=== PATIENT | female | born 1975 | race Caucasian/White ===

== ENCOUNTER 2020-07-11 12:06 | Inpatient (IN) ==
[2020-07-11] MEDS ORDERED: PANTOPRAZOLE 40 MG VIAL IV STA (12:23)
[2020-07-11 12:41] LABS: Basophils % 0.4 % (0.0-0.8); Eosinophils # 0.1 10*3/uL (0.0-0.87); Hematocrit 26.5 VOL% (35.7-47.0); Hemoglobin 8.2 GM/DL (12.0-16.0); Immature Granulocytes % 0.3 %; Immature Granulocytes Absolute 0.02 #; Lymphocytes # 1.2 10*3/uL (1.4-4.0); Lymphocytes % 15.5 % (21.3-54.2); Mean Corpuscular HGB Conc 30.9 GM/DL (32-36); Mean Platelet Volume 10.5 FL (9.6-12.0); Monocytes % 3.9 % (1.7-12.7); Neutrophils % 78.9 % (38.7-73.9); Platelet Count 285 T/CUMM (130-400); Red Blood Count 3.01 MC/CUMM (3.8-5.5); Red Cell Distribution Width 13.3 % (9.3-17.3); White Blood Count 7.7 T/CUMM (4-12)
[2020-07-11 13:02] LABS: Alanine Aminotransferase 18 U/L (13-56); Albumin 3.3 G/DL (3.4-5.0); Alkaline Phosphatase 52 U/L (45-117); Aspartate Amino Transferase 15 U/L (0-37); Bilirubin,Total < 0.39 MG/DL (0.2-1.0); Blood Urea Nitrogen 16 MG/DL (7-18); Calcium 8.9 MG/DL (8.5-10.1); Estimated Glom Filtration Rate 77 ML/MIN; Glucose 110 MG/DL (74-106); Total Protein 7.2 G/DL (6.4-8.3)
[2020-07-11] MEDS ORDERED: SODIUM CHLORIDE 0.9% 1,000 ML IV SCH (14:30)
[2020-07-11] MEDS ORDERED: ONDANSETRON 4 MG/2 ML VIAL IV PRN (14:32)
[2020-07-11] MEDS ORDERED: ACETAMINOPHEN 325 MG TABLET PO PRN (14:32)
[2020-07-11] MEDS ORDERED: hydrALAZINE 20 MG/1 ML VIAL IV PRN (14:32)
[2020-07-11] MEDS ORDERED: DEXTROSE 50% 25 GM/50 ML VIAL IV PRN (14:32)
[2020-07-11] MEDS ORDERED: GLUCAGON 1 MG VIAL IM PRN (14:32)
[2020-07-11 15:07] LABS: Thyroid Stimulating Hormone 0.237 uIU/ml (0.358-3.74)
[2020-07-11] MEDS ORDERED: SIMETHICONE CHEW 125 MG TABLET PO PRN (16:00)
[2020-07-11 16:52] LABS: Hematocrit 25.7 VOL% (35.7-47.0); Hemoglobin 7.9 GM/DL (12.0-16.0)
[2020-07-11] MEDS: LACTATED RINGERS 1,000 ML IV SCH (17:29)
[2020-07-11 20:32] LABS: Hematocrit 24.4 VOL% (35.7-47.0); Hemoglobin 7.8 GM/DL (12.0-16.0)
[2020-07-11] MEDS: DICYCLOMINE 10 MG CAPSULE PO SCH (21:21)
[2020-07-11] MEDS: PROPRANOLOL 10 MG TABLET PO SCH (21:21)
[2020-07-11] MEDS: BENZTROPINE 1 MG TABLET PO SCH (21:21)
[2020-07-11] MEDS: GABAPENTIN 400 MG CAPSULE PO SCH (21:22)
[2020-07-11] MEDS: traZODone 50 MG TABLET PO SCH (21:22)
[2020-07-11] MEDS: PANTOPRAZOLE 40 MG VIAL IV SCH (21:22)
[2020-07-12] MEDS: LACTATED RINGERS 1,000 ML IV SCH ×5 (01:49→19:15)
[2020-07-12 02:35] LABS: Basophils % 0.3 % (0.0-0.8); Eosinophils # 0.1 10*3/uL (0.0-0.87); Eosinophils % 1.8 % (0.00-10.9); Hematocrit 22.7 VOL% (35.7-47.0); Immature Granulocytes % 0.3 %; Immature Granulocytes Absolute 0.02 #; Lymphocytes # 2.2 10*3/uL (1.4-4.0); Lymphocytes % 36.4 % (21.3-54.2); Mean Corpuscular HGB Conc 30.8 GM/DL (32-36); Mean Platelet Volume 9.9 FL (9.6-12.0); Monocytes % 6.2 % (1.7-12.7); Platelet Count 231 T/CUMM (130-400); Red Blood Count 2.58 MC/CUMM (3.8-5.5); Red Cell Distribution Width 13.4 % (9.3-17.3)
[2020-07-12 02:51] LABS: Calcium 8.5 MG/DL (8.5-10.1); Osmolality,Calculated 273.7 MOS/KG (273-304)
[2020-07-12] MEDS ORDERED: SODIUM CHLORIDE 0.9% 1,000 ML IV PRN (07:08)
[2020-07-12] MEDS: GABAPENTIN 400 MG CAPSULE PO SCH ×2 (08:39→20:19)
[2020-07-12] MEDS: BENZTROPINE 1 MG TABLET PO SCH ×2 (08:39→20:19)
[2020-07-12] MEDS: PANTOPRAZOLE 40 MG VIAL IV SCH ×2 (08:40→20:19)
[2020-07-12] MEDS: MELOXICAM 7.5 MG TABLET PO SCH (08:40)
[2020-07-12] MEDS: LURASIDONE 40 MG TABLET PO SCH (08:40)
[2020-07-12] MEDS: DICYCLOMINE 10 MG CAPSULE PO SCH (08:40)
[2020-07-12] MEDS: hydroCHLOROthiazide 12.5 MG CAPSULE PO SCH (08:40)
[2020-07-12] MEDS: lisinopriL 10 MG TABLET PO SCH (08:40)
[2020-07-12] MEDS: PROPRANOLOL 10 MG TABLET PO SCH ×2 (08:40→20:19)
[2020-07-12 08:46] LABS: Hematocrit 24.5 VOL% (35.7-47.0); Hemoglobin 7.5 GM/DL (12.0-16.0)
[2020-07-12] MEDS: SERTRALINE 100 MG TABLET PO SCH (10:53)
[2020-07-12 12:25] LABS: Hematocrit 24.7 VOL% (35.7-47.0); Hemoglobin 7.4 GM/DL (12.0-16.0)
[2020-07-12] MEDS: POLYETHYLENE GLYCOL POWDER 17 GM PACK PO SCH ×2 (12:55→20:19)
[2020-07-12] MEDS: DOCUSATE SODIUM 100 MG CAPSULE PO SCH ×2 (12:55→20:19)
[2020-07-12] MEDS: traZODone 50 MG TABLET PO SCH (20:19)
[2020-07-13] MEDS: LACTATED RINGERS 1,000 ML IV SCH ×3 (02:50→19:47)
[2020-07-13 06:23] LABS: Basophils % 0.4 % (0.0-0.8); Eosinophils # 0.1 10*3/uL (0.0-0.87); Eosinophils % 2.7 % (0.00-10.9); Hematocrit 24.4 VOL% (35.7-47.0); Hemoglobin 7.4 GM/DL (12.0-16.0); Immature Granulocytes % 0.4 %; Immature Granulocytes Absolute 0.02 #; Lymphocytes # 1.8 10*3/uL (1.4-4.0); Lymphocytes % 35.2 % (21.3-54.2); Mean Corpuscular HGB Conc 30.3 GM/DL (32-36); Mean Corpuscular Volume 88.7 FL (87-102); Mean Platelet Volume 10.9 FL (9.6-12.0); Monocytes % 7.4 % (1.7-12.7); Neutrophils % 53.9 % (38.7-73.9); Platelet Count 256 T/CUMM (130-400); Red Blood Count 2.75 MC/CUMM (3.8-5.5); Red Cell Distribution Width 13.5 % (9.3-17.3); White Blood Count 5.1 T/CUMM (4-12)
[2020-07-13 06:42] LABS: Calcium 8.5 MG/DL (8.5-10.1)
[2020-07-13] MEDS: MELOXICAM 7.5 MG TABLET PO SCH (09:22)
[2020-07-13] MEDS: GABAPENTIN 400 MG CAPSULE PO SCH ×2 (09:22→23:07)
[2020-07-13] MEDS: LURASIDONE 40 MG TABLET PO SCH (09:22)
[2020-07-13] MEDS: PROPRANOLOL 10 MG TABLET PO SCH ×2 (09:23→23:12)
[2020-07-13] MEDS: BENZTROPINE 1 MG TABLET PO SCH ×2 (09:23→23:07)
[2020-07-13] MEDS: SERTRALINE 100 MG TABLET PO SCH (09:23)
[2020-07-13] MEDS: lisinopriL 10 MG TABLET PO SCH (09:24)
[2020-07-13] MEDS: hydroCHLOROthiazide 12.5 MG CAPSULE PO SCH (09:24)
[2020-07-13] MEDS: DOCUSATE SODIUM 100 MG CAPSULE PO SCH ×2 (09:24→23:07)
[2020-07-13] MEDS: POLYETHYLENE GLYCOL POWDER 17 GM PACK PO SCH ×2 (09:25→23:07)
[2020-07-13] MEDS: PANTOPRAZOLE 40 MG VIAL IV SCH ×2 (09:29→23:08)
[2020-07-13 16:51] LABS: Hematocrit 22.4 VOL% (35.7-47.0); Hemoglobin 6.8 GM/DL (12.0-16.0)
[2020-07-13] MEDS: traZODone 50 MG TABLET PO SCH (23:07)
[2020-07-14] MEDS ORDERED: LACTATED RINGERS 1,000 ML IV SCH (08:00)
[2020-07-14] MEDS ORDERED: propofoL 200 MG/20 ML VIAL IV ONE (09:00)
[2020-07-14] MEDS ORDERED: LIDOCAINE 2% 5 ML VIAL ONE (09:00)
[2020-07-14 10:04] LABS: Basophils % 0.6 % (0.0-0.8); Eosinophils # 0.1 10*3/uL (0.0-0.87); Eosinophils % 2.1 % (0.00-10.9); Hematocrit 32.6 VOL% (35.7-47.0); Hemoglobin 10.1 GM/DL (12.0-16.0); Immature Granulocytes % 0.6 %; Immature Granulocytes Absolute 0.03 #; Lymphocytes # 1.4 10*3/uL (1.4-4.0); Mean Corpuscular Volume 90.3 FL (87-102); Mean Platelet Volume 10.4 FL (9.6-12.0); Monocytes % 5.1 % (1.7-12.7); Neutrophils % 62.6 % (38.7-73.9); Platelet Count 250 T/CUMM (130-400); Red Blood Count 3.61 MC/CUMM (3.8-5.5); Red Cell Distribution Width 14.1 % (9.3-17.3); White Blood Count 4.9 T/CUMM (4-12)
[2020-07-14 10:21] LABS: Calcium 8.8 MG/DL (8.5-10.1); Osmolality,Calculated 284.8 MOS/KG (273-304)
[2020-07-14 10:27] LABS: % Iron Saturation 33.4 % (18-50); Ferritin 9.1 ng/ml (8-252)
[2020-07-14 10:34] LABS: Folate 10.3 NG/ML (5.4-24.0); Vitamin B12 1682 PG/ML (211-911)
[2020-07-14] MEDS: BENZTROPINE 1 MG TABLET PO SCH (10:43)
[2020-07-14] MEDS: MELOXICAM 7.5 MG TABLET PO SCH (10:44)
[2020-07-14] MEDS: lisinopriL 10 MG TABLET PO SCH (10:45)
[2020-07-14] MEDS: DOCUSATE SODIUM 100 MG CAPSULE PO SCH (10:45)
[2020-07-14] MEDS: SERTRALINE 100 MG TABLET PO SCH (10:45)
[2020-07-14] MEDS: LURASIDONE 40 MG TABLET PO SCH (10:47)
[2020-07-14] MEDS: hydroCHLOROthiazide 12.5 MG CAPSULE PO SCH (10:47)
[2020-07-14] MEDS: POLYETHYLENE GLYCOL POWDER 17 GM PACK PO SCH (10:48)
[2020-07-14] MEDS: GABAPENTIN 400 MG CAPSULE PO SCH (10:48)
[2020-07-14] MEDS: PROPRANOLOL 10 MG TABLET PO SCH (10:56)
[2020-07-14 11:14] LABS: Sedimentation Rate-Westergren 18 MM/HR (0-20)
[2020-07-14] MEDS: PANTOPRAZOLE 40 MG VIAL IV SCH (13:09)
[2020-07-14] MEDS: LACTATED RINGERS 1,000 ML IV SCH ×2 (15:28)
[2020-07-14 16:15] VITALS: BP 127/78
[2020-07-15 11:30] LABS: Hemoglobin A1 (Alkaline) 96.7 % (96.5-98.5); Hemoglobin A2 (Alkaline) 3.3 % (1.5-3.5)
[2020-07-17 07:31] LABS: Soluble Transf Receptor (sTfR) 4.9 mg/L (1.8 - 4.6)
== END 2020-07-14 17:15 | disposition home or self-care (01) | DRG 378 ==
LOC: EDUNIT# → EDBD → N.EDINP 12:06 → N.ED 12:06 → N.3E 15:06 → SUATTDRO 07-12 07:10
PROVIDERS: ADMIT Hospitalist; ATTEND Family Medicine